=== PATIENT | female | born 1980 | race Caucasian/White ===

== ENCOUNTER 2020-03-29 16:35 | Outpatient (CLI) | payer OTHER, SELFPAY ==
[2020-03-29 17:05] LABS: Basophils Absolute Auto 0.1 K/mm3 (0.0-0.1); Eosinophils Absolute Auto 0.2 K/mm3 (0-0.3); Eosinophils Percent Auto 2.6 % (0-4.4); Hemoglobin 13.4 g/dL (12.0-15.0); Immature Granulocyte Absolute 0.02 K/mm3 (0.00-0.031); Immature Granulocyte Percent A 0.3 % (0-0.5); Lymphocytes Absolute Auto 2.49 K/mm3 (0.9-3.2); Mean Corpuscular HGB Conc 34.4 g/dl (32-36); Mean Corpuscular Hemoglobin 31.2 pg (26-34); Mean Corpuscular Volume 90.9 fl (80-100); Mean Platelet Volume 10.4 fl (7.4-10.4); Monocytes Absolute Auto 0.5 K/mm3 (0.1-0.6); Monocytes Percent Auto 6.6 % (2.6-8.5); Neutrophils Absolute Auto 3.7 K/mm3 (1.3-6.7); Neutrophils Percent Auto 53.5 % (45.5-73.1); Platelet Count Result 225 k/mm3 (150-375); Red Blood Count 4.29 M/mm3 (4.2-5.4); Red Cell Distribution Width 11.8 % (11.5-14.5); White Blood Count 6.9 K/mm3 (4.5-10.0)
[2020-03-29 17:37] LABS: Erythrocyte Sedimentation Rate 6 mm/hr (0-20)
[2020-03-29 17:40] LABS: Alanine Aminotransferase 12 U/L (4-35); Albumin Level 4.4 g/dL (3.5-5.1); Alkaline Phosphatase 63 U/L (38-126); Amylase 116 U/L (30-110); Anion Gap 11.8 mmol/L (7-16); Aspartate Amino Transferase 19 U/L (14-36); Bilirubin,Total 0.4 mg/dL (0.2-1.3); Blood Urea Nitrogen 13 mg/dL (7-17); Calcium 9.1 mg/dL (8.4-10.2); Carbon Dioxide 26 mmol/L (22-30); Chloride 102 mmol/L (98-107); Cholesterol 154 mg/dL (0-200); Estimated Glomerular Filt Rate > 60; Glucose 91 mg/dL (65-105); HDL Direct 59 mg/dL; Lipase 124 U/L (23-300); Potassium 3.8 mmol/L (3.4-5.0); Sodium 136 mmol/L (137-145); Triglycerides 61 mg/dL (<150)
[2020-03-29 17:51] LABS: LDL Cholesterol Direct 79 mg/dL
== END 2020-03-29 16:36 | disposition home or self-care (01) ==
PROVIDERS: PCP Family Medicine; Visit Provider Family Medicine
DX: D64.9 Anemia, unspecified (principal); K59.00 Constipation, unspecified; Z13.220 Encounter for screening for lipoid disorders; R10.13 Epigastric pain; R63.4 Abnormal weight loss
CPT/HCPCS: 36415; 80053; 80061; 82150; 83690; 84443; 85025; 85652

== ENCOUNTER → 2020-11-15 09:15 | Outpatient (CLI) | payer OTHER, SELFPAY ==
--- NOTE | ~2020-11-15 | MMUS_ITS ---
EXAMINATION: MM diagnostic lorrie BI w caleb, US breast LT limited HISTORY: Left axillary lump TECHNIQUE: Additional 3-D tomosynthesis images of the breasts were performed and synthetic 2-D images were generated. CAD analysis was submitted and interpreted. High resolution targeted left axillary u ltrasound was performed. COMPARISON: None BREAST PARENCHYMAL COMPOSITION: The breasts are extremely dense, which lowers the sensitivity of mamm ography. FINDINGS: MAMMOGRAPHIC FINDINGS: There are no suspicious masses, calcifications or architectural distortion in either breast to sugges t malignancy. ULTRASOUND: There are normal-appearing lymph nodes in the left axilla in the area of palpable concern, all of whi ch retain their normal fatty hilum. The largest measures 1.3 cm. No suspicious masses to suggest lynette gnancy. IMPRESSION: 1. No evidence for malignancy in either breast. Left axillary lymph nodes have a benign reactive appe arance. 2. Routine yearly screening mammogram and regular clinical breast examination are recommended. BI-RADS Category 2: Benign finding(s). 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 IMPRESSION: 1. No evidence for malignancy in either breast. Left axillary lymph nodes have a benign reactive appearance. 2. Routine yearly screening mammogram and regular clinical breast examination a re recommended. BI-RADS Category 2: Benign finding(s).
== END ==
PROVIDERS: PCP Family Medicine; Visit Provider Obstetrics & Gynecology
DX: N63.20 Unspecified lump in the left breast, unspecified quadrant (principal)
CPT/HCPCS: 76642; 77062; 77066; G0279

== ENCOUNTER 2021-10-18 10:19 | Outpatient (CLI) | payer OTHER, SELFPAY ==
--- NOTE | ~2021-10-18 | MMUS_ITS ---
EXAMINATION: MM diagnostic lorrie BI w caleb, US breast LT limited HISTORY: Palpable left breast abnormality TECHNIQUE: Additional 3-D tomosynthesis images of the breasts were performed and synthetic 2-D images were generated. CAD analysis was submitted and interpreted. High resolution Limited left breast ultr asound was performed. COMPARISON: 11/15/2020 BREAST PARENCHYMAL COMPOSITION: The breasts are extremely dense, which lowers the sensitivity of mamm ography. FINDINGS: MAMMOGRAPHIC FINDINGS: There is a developing focal asymmetry in the mid outer aspect of the left breast near the areola, cor responding to the palpable finding. The right breast is stable without evidence for malignancy. ULTRASOUND: Limited left breast ultrasound: At 3:00 near the nipple there is a cluster of cysts, largest measurin g 1.9 cm greatest dimension, corresponding to the mammographic and palpable abnormality. No suspiciou s masses to suggest malignancy. IMPRESSION: 1. No evidence for malignancy in either breast. Benign findings. 2. Routine yearly screening mammogram and regular clinical breast examination are recommended. BI-RADS Category 2: Benign finding(s). 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 No evidence for malignancy in either breast. Benign findings. 2. Routine yearly screening mammogram and regular clinical breast examination a re recommended. BI-RADS Category 2: Benign finding(s).
== END 2021-10-18 10:20 | disposition home or self-care (01) ==
LOC: ANHIMG 10:22
PROVIDERS: PCP Family Medicine; Visit Provider Nurse Practitioner Gerontology
DX: N63.0 Unspecified lump in unspecified breast (principal)
CPT/HCPCS: 76642; 77062; 77066; G0279

== ENCOUNTER 2024-11-10 11:05 | Outpatient (CLI) | payer OTHER, SELFPAY ==
--- NOTE | 2024-11-10 11:18 | ECG_ITS ---
Test Date: 2024-11-10 11:43:08 Measurements Intervals [place] Rate: 67 P: 72 MN: 177 QRS: -29 QRSD: 89 T: 28 QT: 400 QTc: 423 Interpretive Statements SINUS RHYTHM BORDERLINE LEFT AXIS DEVIATION [QRS AXIS < -20] No previous ECG available for comparison Electronically Signed On 11-10-2024 13:53:19 CDT by Casper Buck M.D.
--- OUTSIDE RECORDS SUMMARY | 2024-11-10 12:54 | XMS_ITS | Data Portability ---
Author Organization [facility] Address [address] [place] [address] Assessment Encounter Date Assessment Date Assessment LastModified by Organization Details LastModified Time 08/11/2024 08/11/2024 due for mammogram. gyne is Dr. Zbigniew Gu. last pap smear normal. hx of abnormal. hx of HPV no hx of colonoscopy Eye exam: due dental appt: UTD recently. [email or web address] Not available 08/29/2024 19:56:13 Plan of Treatment Reminders Order Date Submit Date Provider Last Modified By Organization Details Last Modified Time Details Appointments None recorded. Lab amylase + lipase, serum 2023 [facility], [address], [place], [address], 5 15:40:40 TSH + free T4, serum 2023 [facility], [address], [place], [address], 5 15:40:40 lipid panel, serum 2023 024 [facility], [address], [place], [address], 5 15:40:40 CMP, serum or plasma 2023 024 [facility], [address], [place], [address], 5 15:40:40 CBC w/ auto diff 2023 [facility], [address], [place], [address], 5 15:40:40 cobalamin and folate panel, serum 2023 [facility], [address], [address], [place], [address], 5 15:40:39 magnesium, serum or plasma 2023 024 [facility], [address], [address], [place], [address], 5 15:40:40 HbA1c (hemoglobi n A1c), blood 2023 024 [facility], [address], [address], [place], [address], 5 15:40:40 test, urine 2020 ankita In-Office Order, Internal Use Only DO Not Attach Compendium DO Not Attach Compendium, Do Not Delete/merge, [id number] 13:07:07 biopsy, endocervic al 2020 [facility] [place] [facility], [address], [place], [address], 1 13:07:07 cytology report, thin prep, smear or scraping, cervical or vaginal 2020 [place] [facility], [address], [address], [place], [address], 1 16:10:54 hepatitis C Ab, signal-to- cutoff, serum or plasma 2020 021 [place] [facility], [address], [place], [address], 1 07:13:10 HBsAg (hepatitis B surface Ag), EIA, serum 2020 [place] [facility], [address], [address], [place], [address], 1 07:13:11 HIV 1+2 AB + HIV 1 p24 Ag, qualitativ e immunoassa y, serum 2020 021 [place] [facility], [address], [place], [address], 1 07:13:09 HSV 2 IgG Ab, QN, IA, serum 2020 021 [place] [facility], [address], [address], [place], [address], 1 07:13:11 RPR (rapid plasma reagin), serum 2020 021 [place] [facility], [address], [address], [place], [address], 07:13:09 Referral None recorded. Procedures colposcopy with biopsy (PROC) 2018 019 [email or web address] Not available 9 17:29:46 Surgeries loop electrode excision procedure, surgical (LEEP) (SURG) 2020 [facility], [address] [place], [address], 11:44:24 Imaging None recorded. Medication Orders None recorded. Patient TargetsNo targets recorded. Patient Instructions Encounter Date Encounter Id Patient Instructions Last Modified By Organization Details Last Modified Time 10/11/2020 [id number] mammogram: about this test jimmy Not available 10/11/2020 12:14:57 01/10/2021 [id number] abnormal Pap test: care instructions jimmy Not available 01/10/2021 13:07:07 colposcopy: before your procedure jimmy Not available 01/10/2021 13:07:07 Reason for Referral None Reported. Results Created Date Observation Date Name Description Value Unit Range Abnormal Flag Note LastModifiedBy Organization Detail LastModifiedTime 01/11/20 21 01/10/2021 pregn anand test, urine HCG negati ve Not Available In-Office Order Internal Use Only DO Not Attach Compendium DO Not Attach Compendium, Do Not Delete/merge, [id number] 01/10/2021 12:35:34 11/05/19 19 11/05/2018 RPR (rapi d plasm a reagi n), serum RPR Non Reacti ve non reacti ve Not Available [facility] ([facility]) [address] [facility], [place], [address], 11/05/2018 11:20:29 11/05/19 19 11/05/2018 HIV 1+2 AB + HIV 1 p24 Ag, quali tativ e immun oassa y, serum HIV screen 4TH generation wrfx Non Reacti ve non reacti ve Not Available [facility] ([facility]) [address] [facility], [place], [address], 11/05/2018 11:20:30 11/05/19 19 11/04/2018 hepat itis C Ab, signa l-to- cutof f, serum or plasm a comment: Commen t Non react teodoro HCV antib gisselle scree n is consi stent with no HCV infec tion, unles s recen t infec tion is suspe cted or other evide nce exist s to indic ate HCV infec tion. Not Available [facility] ([facility]) [address] [facility], [place], [address], 11/05/2018 11:20:30 11/05/19 19 11/05/2018 hepat itis C Ab, signa l-to- cutof f, serum or plasm a HCV Ab <0.1 s/co_ ratio 0.0-0. 9 Not Available [facility] ([facility]) [address] [place], [address], 11/05/2018 11:20:30 11/05/19 19 11/05/2018 HSV 2 IgG Ab, QN, IA, serum hsv 2 IgG, type spec <0.91 index 0.00-0 .90 Negat teodoro <0.91 Equiv ocal 0.91 - 1.09 Posit teodoro >1.09 Note: Negat teodoro indic ates no antib odies detec suki to HSV-2 . Equiv ocal may sugge st early infec tion. If clini tommy appro priat e, retes t at later date. Posit teodoro indic ates antib odies detec suki to HSV-2 . Not Available [facility] ([facility]) [address] [facility], [place], [address], 11/05/2018 11:20:31 11/05/1911/05/2018 HBsAg (hepa titis B surfa ce Ag), EIA, serum HBsAg screen Negati ve negati ve Not Available [facility] ([facility]) [address] [facility], [place], [address], 11/05/2018 11:20:32 11/05/1911/06/2018 pap, LB + CT/NG /TV + HR HPV + refle x HPV (16+1 8) HPV, high-risk Positi ve negati ve abnormal This high- risk HPV test detec ts thirt een high- risk types (16/1 8/31/ 33/35 /39/4 5/51/ 52/56 /58/5 /68) witho ut diffe renti ation . Not Available [facility] ([facility]) [address] [place], [address], 11/09/2018 11:11:52 11/05/1911/06/2018 pap, LB + CT/NG /TV + HR HPV + refle x HPV (16+1 8) chlamydia, nuc. acid amp Negati ve negati ve Not Available [facility] ([facility]) [address] [place], [address], 11/09/2018 11:11:52 11/05/19 19 11/06/2018 pap, LB + CT/NG /TV + HR HPV + refle x HPV (16+1 8) gonococcus, nuc. acid amp Negati ve negati ve Not Available [facility] ([facility]) [address] [place], [address], 11/09/2018 11:11:52 11/05/19 19 11/06/2018 pap, LB + CT/NG /TV + HR HPV + refle x HPV (16+1 8) trich vag by HUMBLE Negati ve negati ve Not Available [facility] ([facility]) [address] [facility], [place], [address], 11/09/2018 11:11:52 11/05/19 19 11/09/2018 pap, LB + CT/NG /TV + HR HPV + refle x HPV (16+1 8) diagnosis: Commen t abnormal EPITH ELIAL CELL ABNOR MALIT Y. LOW-G RADE SQUAM OUS INTRA EPITH ELIAL LESIO N (LSIL ); (ENCO MPASS ING HUMAN PAPIL LOMAV IRUS /MILD DYSPL OSCAR/ CIN1) . Not Available [facility] ([facility]) [address] [facility], [place], [address], 11/09/2018 11:11:52 11/05/19 19 11/09/2018 pap, LB + CT/NG /TV + HR HPV + refle x HPV (16+1 8) recommendati on: Commen t abnormal Sugge st follo w up as clini tommy appro priat e. Not Available [facility] ([facility]) [address] [place], [address], 11/09/2018 11:11:52 11/05/19 19 11/09/2018 pap, LB + CT/NG /TV + HR HPV + refle x HPV (16+1 8) specimen adequacy: Kelly moon Satis facto ry for evalu ation . Endoc ervic al and/o r squam ous metap lasti c cells (endo cervi christen compo nent) are prese nt. Not Available [facility] ([facility]) [address] [facility], [place], [address], 11/09/2018 11:11:52 11/05/19 19 11/09/2018 pap, LB + CT/NG /TV + HR HPV + refle x HPV (16+1 8) clinician provided ICD10: Kelly moon Z01.4 19 Not Available [facility] ([facility]) [address] [facility], [place], [address], 11/09/2018 11:11:52 11/05/19 19 11/09/2018 pap, LB + CT/NG /TV + HR HPV + refle x HPV (16+1 8) performed by: Kelly Ramos, Cytot echno logis t (ASCP ) Not Available [facility] ([facility]) [address] [facility], [place], [address], 11/09/2018 11:11:52 11/05/19 19 11/09/2018 pap, LB + CT/NG /TV + HR HPV + refle x HPV (16+1 8) electronical ly signed by: Kelly Rodrigez MD, Patho logis t Not Available [facility] ([facility]) [address] [facility], [place], [address], 11/09/2018 11:11:52 11/05/19 19 11/09/2018 pap, LB + CT/NG /TV + HR HPV + refle x HPV (16+1 8) . . Not Available [facility] ([facility]) [address] [place], [address], 11/09/2018 11:11:52 11/05/19 19 11/09/2018 pap, LB + CT/NG /TV + HR HPV + refle x HPV (16+1 8) pathologist provided ICD10: Kelly sarai R87.6 12 Not Available [facility] ([facility]) [address] [facility], [place], [address], 11/09/2018 11:11:52 11/05/19 19 11/09/2018 pap, LB + CT/NG /TV + HR HPV + refle x HPV (16+1 8) note: Kelly moon The Pap smear is a scree isaias test desig christiane to aid in the detec tion of dorian ligna nt and malig nant condi tions of the uteri ne cervi x. It is not a diagn ostic proce dure and shoul d not be used as the sole means of detec ting cervi christen cance r. Both false -posi tive and false -nega tive repor ts do occur . Not Available [facility] ([facility]) [address] [facility], [place], [address], 11/09/2018 11:11:52 11/05/19 19 11/04/2018 pregn anand test, urine HCG negati ve Not Available In-Office Order Internal Use Only DO Not Attach Compendium DO Not Attach Compendium, Do Not Delete/merge, [id number] 11/04/2018 09:31:43 10/11/1910/12/2020 RPR (rapi d plasm a reagi n), serum RPR Non Reacti ve non reacti ve Not Available [facility] ([facility]) [address] [facility], [place], [address], 10/12/2020 07:13:09 10/11/19 21 10/12/2020 HIV 1+2 AB + HIV 1 p24 Ag, quali tativ e immun oassa y, serum HIV screen 4TH generation wrfx Non Reacti ve non reacti ve Not Available [facility] ([facility]) [address] [facility], [place], [address], 10/12/2020 07:13:09 10/11/19 21 10/12/2020 hepat itis C Ab, signa l-to- cutof f, serum or plasm a hep C virus Ab <0.1 s/co_ ratio 0.0-0. 9 Negat teodoro: < 0.8 Indet ermin ate: 0.8 - 0.9 Posit teodoro: > 0.[address] [facility] recom mends that a posit teodoro HCV antib gisselle resul t be follo wed up with a HCV Nucle ic Acid Ampli ficat ion test (5509 13). Not Available [facility] ([facility]) [address] [facility], [place], [address], 10/12/2020 07:13:10 10/11/19 21 10/12/2020 HSV 2 IgG Ab, QN, IA, serum hsv 2 IgG, type spec <0.91 index 0.00-0 .90 Negat teodoro <0.91 Equiv ocal 0.91 - 1.09 Posit teodoro >1.09 Note: Negat teodoro indic ates no antib odies detec suki to HSV-2 . Equiv ocal may sugge st early infec tion. If clini tommy appro priat e, retes t at later date. Posit teodoro indic ates antib odies detec suki to HSV-2 . Not Available [facility] ([facility]) [address] [facility], [place], [address], 10/12/2020 07:13:11 10/11/1910/12/2020 HBsAg (hepa titis B surfa ce Ag), EIA, serum HBsAg screen Negati ve negati ve Not Available [facility] ([facility]) [address] [facility], [place], [address], 10/12/2020 07:13:11 10/11/19 21 10/12/2020 cytol ogy repor t, thin prep, smear or scrap ing, cervi christen or vagin al chlamydia, nuc. acid amp Negati ve negati ve Not Available [facility] ([facility]) [address] [facility], [place], [address], 10/17/2020 16:10:54 10/11/19 21 10/12/2020 cytol ogy repor t, thin prep, smear or scrap ing, cervi christen or vagin al gonococcus, nuc. acid amp Negati ve negati ve Not Available [facility] ([facility]) [address] [place], [address], 10/17/2020 16:10:54 10/11/19 21 10/12/2020 cytol ogy repor t, thin prep, smear or scrap ing, cervi christen or vagin al trich vag by HUMBLE Negati ve negati ve Not Available [facility] ([facility]) [address] [facility], [place], [address], 10/17/2020 16:10:54 10/11/19 21 10/13/2020 cytol ogy repor t, thin prep, smear or scrap ing, cervi christen or vagin al HPV aptima Positi ve negati ve abnormal This nucle ic acid ampli ficat ion test detec ts fourt een high- risk HPV types (16,1 8,31, 33,35 ,39,4 5,51, 52,56 ,58,5 9,66, 68) witho ut diffe renti ation . Not Available [facility] ([facility]) [address] [place], [address], 10/17/2020 16:10:54 10/11/1910/17/2020 cytol ogy repor t, thin prep, smear or scrap ing, cervi christen or vagin al diagnosis: Commen t abnormal EPITH ELIAL CELL ABNOR MALIT Y. ATYPI CHRISTEN SQUAM OUS CELLS OF UNDET ERMIN ED SIGNI FICAN CE (ASC- US). Not Available [facility] ([facility]) [address] [place], [address], 10/17/2020 16:10:54 02/10/10/17/2020 cytol ogy repor t, thin prep, smear or scrap ing, cervi christen or vagin al recommendati on: Kelly moon abnormal Sugge st follo w up as clini tommy appro timurat e. Not Available [facility] ([facility]) [address] [place], [address], 10/17/2020 16:10:54 10/11/1910/17/2020 cytol ogy repor t, thin prep, smear or scrap ing, cervi christen or vagin al specimen adequacy: Kelly moon Satis facto ry for evalu ation . Endoc ervic al and/o r squam ous metap lasti c cells (endo cervi christen compo nent) are prese nt. Not Available [facility] ([facility]) [address] [place], [address], 10/17/2020 16:10:54 10/11/19 21 10/17/2020 cytol ogy repor t, thin prep, smear or scrap ing, cervi christen or vagin al clinician provided ICD10: Kelly moon Z01.4 19 Not Available [facility] ([facility]) [address] [place], [address], 10/17/2020 16:10:54 10/11/19 21 10/17/2020 cytol ogy repor t, thin prep, smear or scrap ing, cervi christen or vagin al performed by: Kelly Tam Pushk in, Cytot echno logis t (ASCP ) Not Available [facility] ([facility]) [address] [place], [address], 10/17/2020 16:10:54 10/11/19 21 10/17/2020 cytol ogy repor t, thin prep, smear or scrap ing, cervi christen or vagin al electronical ly signed by: Kelly Rodrigez MD, Patho logis t Not Available [facility] ([facility]) [address] [place], [address], 10/17/2020 16:10:54 10/11/19 21 10/17/2020 cytol ogy repor t, thin prep, smear or scrap ing, cervi christen or vagin al . . Not Available [facility] ([facility]) [address] [place], [address], 10/17/2020 16:10:54 10/11/19 21 10/17/2020 cytol ogy repor t, thin prep, smear or scrap ing, cervi christen or vagin al pathologist provided ICD10: Kelly moon R87.6 10 Not Available [facility] ([facility]) [address] [place], [address], 10/17/2020 16:10:54 10/11/19 21 10/17/2020 cytol ogy repor t, thin prep, smear or scrap ing, cervi christen or vagin al note: Kelly moon The Pap smear is a scree isaias test desig christiane to aid in the detec tion of dorian ligna nt and malig nant condi tions of the uteri ne cervi x. It is not a diagn ostic proce dure and shoul d not be used as the sole means of detec ting cervi christen cance r. Both false -posi tive and false -nega tive repor ts do occur . Not Available [facility] ([facility]) [address] [place], [address], 10/17/2020 16:10:54 10/11/19 21 10/17/2020 cytol ogy repor t, thin prep, smear or scrap ing, cervi christen or vagin al test methodology: Kelly moon This liqui d based ThinP rep(R ) pap test was scree christiane with the use of an image guide ben hanson. Not Available [facility] ([facility]) [address] [place], [address], 10/17/2020 16:10:54 01/11/20 21 01/14/2021 patho logy study . Commen t Mater ial submi tted: . PART A: endoc ervix - ENDOC ERVIC AL CURET TAGE PART B: cervi x - CERVI CHRISTEN BIOPS Y 6:00. Modif iers: 6:00 PART C: cervi x - CERVI CHRISTEN BIOPS Y 9:00. Modif iers: 9:00 Not Available [facility] ([facility]) [address] [facility], [place], [address], 01/14/2021 16:08:15 01/11/20 21 01/14/2021 patho logy study . Commen t Clini christen histo ry: . R87.6 19 Not Available [facility] ([facility]) [address] [facility], [place], [address], 01/14/2021 16:08:15 01/11/20 21 01/14/2021 patho logy study . Commen t Diagn osis: A. ENDOC ERVIC AL CURET TAGE: LOLIS N ENDOC ERVIC AL MUCOS A. B. CERVI CHRISTEN BIOPS Y 4:00: MILD, FOCAL LY MODER ATE SQUAM OUS DISPL OSCAR (SHIV- 1/SHIV -2). ACUTE AND CHRON IC CERVI CITIS . C. CERVI CHRISTEN BIOPS Y 9:00: SMALL FRAGM ENT OF DYSPL ASTIC SQUAM OUS EPITH ELIUM , AT LEAST LOW-G RADE SQUAM OUS DYSPL OSCAR (SHIV- 1). ACUTE AND CHRON IC CERVI CITIS . COMME NT: CLINI CHRISTEN CORRE LATIO N AND PATIE NT FOLLO WUP ARE RECOM SCARLETShawn MARIE 01/14 1330 Local Not Available [facility] ([facility]) [address] [place], [address], 01/14/2021 16:08:15 01/11/20 21 01/14/2021 patho logy study . Commchase t Wilton gray d: . Ever ascencio MD, Patho logis t Not Available [facility] ([facility]) [address] [place], [address], 01/14/2021 16:08:15 01/11/20 21 01/14/2021 patho logy study . Commchase Lowe descr iptio n: . 3 Conta iners , forma rose-f illed , label ed with patie nt ident ifica tion. Part A: ENDOC ERVIC AL CURET TAGE: MINUT E FRAGM ENT(S ) OF MUCUS AND HEMOR RHAGI C MATER IAL MEASU RING 1.3 X 0.2 X 0.1 CM IN AGGRE GATE. FILTE RED AND SUBMI TTED IN CASSE TTE(S ) A1. THE SPECI MEN MAY NOT SURVI VE PROCE SSING . Part B: CERVI CHRISTEN BIOPS Y 6:00: 1 FRAGM ENT(S ) OF ARCEO MUCOI D TISSU E MEASU RING 0.3 X 0.3 X 0.2 CM. FILTE RED AND SUBMI TTED RECEI FRANK IN CASSE TTE(S ) B1. Part C: CERVI CHRISTEN BIOPS Y 9:00: 1 FRAGM ENT(S ) OF ARCEO MUCOI D TISSU E MEASU RING 0.4 X 0.3 X 0.2 CM. SUBMI TTED RECEI FRANK IN CASSE TTE(S ) C1. THE SPECI MEN IS SUBMI TTED BETWE EN TWO SPONG ES FOR PROCE SSING . CYS/C YS 01/11 0937 Local Not Available [facility] ([facility]) [address] [facility], [place], [address], 01/14/2021 16:08:15 01/11/20 21 01/14/2021 patho logy study . Commchase t Patho logis t provi ded ICD-1 0: N87.0 Not Available [facility] ([facility]) [address] [facility], [place], [address], 01/14/2021 16:08:15 01/11/20 21 01/14/2021 patho logy study . Commen t CPT . 76080 1, 50202 2, 91290 3 Not Available [facility] ([facility]) [address] [facility], [place], [address], 01/14/2021 16:08:15 11/16/19 21 11/15/2020 MAMMO , diagn ostic , digit al, bilat eral No observ ation record ed. [facility] [address] [facility] [address], [place], [address], 11/15/2020 16:22:42 Result Notes None recorded. Problems Name Problem SNOMED Code Status Onset Date Resolution Date Notes Provider Name and Address Organization Details Recorded Time Family history of malignant neoplasm of pancreas 501467479 Active 024 REJI Greene Attn: Accountin g,[address] [facility], [place], [address], [facility] 4 19:56:40 Long-term drug therapy Active 024 REJI Greene Attn: Accountin g,[address] [facility], [place], [address], [place] [facility] 4 19:56:46 Body mass index 20-24 - normal 467925447 Active 024 REJI Greene Attn: Accountin g,[address] [facility], [place], [address], [facility] - [facility] 4 19:57:04 Problem Notes None recorded. Procedures Surgical History Date Name Laterality Status Provider Name and Address Organization Details Recorded Time 01/10/2021 Colposcopy completed Nate Chopra MD Attn: Accounting,[address] [facility], [place], [address], [facility] 01/10/2021 13:10:08 05/26/2017 Colposcopy completed Nate Chopra MD Attn: Accounting,[address] [facility], [place], [address], [facility] 05/26/2017 11:11:05 Imaging Results Imaging Date Name Status LastModified by Organiz ation Details LastModified Time 11/15/2020 MAMMO, diagnostic, digital, bilateral completed [facility] [address], [place], [address], 11/15/2020 16:22:42 Procedure Notes None recorded. Medical Equipment None Reported. Allergies No known drug allergies Medications Name Sig Start Date Stop Date Status Note LastModified by Organization Details LastModified Time smz/tmp ds tab 800-160 08/11 completed Not Available Not Available Not Available poly-iron cap 150 fort 08/11 completed Not Available Not Available Not Available valacyclovi r 1 gram tablet TAKE 1 TABLET BY MOUTH EVERY 12 HOURS active Not Available Not Available No t Available sulfamethox azole 800 mg-trimetho prim 160 mg tablet 01/10 completed Not Available Not Available Not Available 09/20 (28) 1 mg-20 mcg (21)/75 mg (7) tablet TAKE 1 TABLET BY MOUTH EVERY DAY 03/09 completed Not Available Not Available Not Available nitrofurant oin monohydrate /macrocryst als 100 mg capsule TAKE 1 CAPSULE BY MOUTH EVERY 12 HOURS FOR UTI FOR 7 DAYS MUST ADMINISTE R WITH A MEAL/FOOD 08/11 completed Not Available Not Available Not Available multivitami n active otc Not Available Not Available Not Available Vitals Date Recorded Body height Body mass index (BMI) Body weight Systolic blood pressure Diastolic blood pressure Provider Name and Address Organization Details Last Updated DateTime 11/18/2018 154.94 cm 22.9 kg/m2 58398.68 g 138 mm[Hg] 82 mm[Hg] Shellie Lund MA [facility] 9 16:33:12 Date Recorded Body height Body mass index (BMI) Body weight Systolic blood pressure Diastolic blood pressure Provider Name and Address Organization Details Last Updated DateTime 10/11/2020 154.94 cm 20.2 kg/m2 84339.38 g 114 mm[Hg] 68 mm[Hg] Glory YOHANA Garcia [facility] 11:18:32 Date Recorded Body height Body mass index (BMI) Body weight Systolic blood pressure Diastolic blood pressure Provider Name and Address Organization Details Last Updated DateTime 01/10/2021 154.94 cm 20.3 kg/m2 11331.82 g 116 mm[Hg] 70 mm[Hg] Lexy Calderon MA [facility] 11:26:56 Date Recorded Body height Provider Name an d Address Organization Details Last Updated DateTime 03/09/2021 154.94 cm Deisi Crookschelsea Acosta [facility] 2020 13:57:07 Date Recorded Body height Body mass index (BMI) Body weight Respiratory rate Oxygen saturation Oxygen saturation in Arterial blood by Pulse oximetry Heart rate Systolic blood pressure Diastolic blood pressure Provider Name and Address Organization Details Last Updated DateTime 4 154.94 cm 22.9 kg/m2 22050.6 8 g 18 /min 100 % 100 % 87 /min 126 mm[Hg] 82 mm[Hg] Eren Causey MA [facility] 4 15:06:39 Date Recorded Systolic blood pressure Diastolic blood pressure Systolic blood pressure Diastolic blood pressure Provider Name and Address Organization Details Last Updated DateTime 08/11/2024 98 mm[Hg] 70 mm[Hg] 90 mm[Hg] 70 mm[Hg] REJI Greene Attn: Accounting ,[address] [place], [address] , [facility] 4 15:50:16 Social History Question Answer Notes LastModified by Organizat ion Details LastModified Time Tobacco Smoking Status Never Smoker Shellie Lund MA null, [facility] 05/26/2017 10:18:10 Do You Have An Advance Directive? No Doesn't Have This Information not available 08/11/2024 What Is Your Level Of Alcohol Consumption? Occasional Rare Information not available 08/11/2024 Are You Blind Or Do You Have Difficulty Seeing? No Should Wear Glasses/ Readers Only Information not available 08/11/2024 What Is Your Level Of Caffeine Consumption? Moderate Soda Information not available 08/11/2024 In The 14 Days Before Symptom Onset, Have You Had Close Contact With A Laboratory-confir med COVID-19 While That Case Was Ill? No Information not available 08/11/2024 In The 14 Days Before Symptom Onset, Have You Had Close Contact With A Person Who Is Under Investigation For COVID-19 While That Person Was Ill? No Information not available 08/11/2024 Have You Been To An Area Known To Be High Risk For COVID-19? No Information not available 08/11/2024 Are You Currently Employed? Yes Information not available 08/11/2024 Are You Deaf Or Do You Have Serious Difficulty Hearing? No Information not available 08/11/2024 What Type Of Diet Are You Following? 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 No Information not available 08/11/2024 What Was The Date Of Your Most Recent Tobacco Screening? 08/11/2024 Information not available 08/11/2024 Do You Use Your Seat Belt Or Car Seat Routinely? Yes Information not available 08/11/2024 Do You Have Smoke And Carbon Monoxide Detectors In Your Home? Yes Information not available 08/11/2024 Do You Use Any Illicit Or Recreational Drugs? No Information not available 08/11/2024 Do You Use Sunscreen Routinely? No Information not available 08/11/2024 Has Tobacco Cessation Counseling Been Provided? No [email or web address] Information not available 03/09/2021 Do You Or Have You Ever Used Any Other Forms Of Tobacco Or Nicotine? No Information not available 03/09/2021 Sex: Female Functional Status Question Answer Note LastModified by Organizat ion Details LastModified Time Are you able to care for yourself? Yes Information not available 08/11/2024 What is your exercise level? Occasional 6x a week Information not available 08/11/2024 Mental Status None recorded. Family History Relationship Description Onset Age of this Age Resolved Age Notes LastModified by Organization Details LastModified Time Paternal Aunt Malignant tumor of breast [email or web address] Not available 2020 11:45:10 Daughter Asthma mslackma Not available 10/11/2020 11:45:22 Daughter Depressive disorder mslackma Not available 2020 11:45:37 Maternal Grandmother Diabetes mellitus mslackma Not available 2020 11:45:47 Mother Diabetes mellitus mslackma Not available 2020 11:45:53 Maternal Grandfather Heart disease mslackma Not available 2020 11:46:12 Maternal Aunt Kidney disease mslackma Not available 2020 11:46:25 Maternal Aunt Malignant tumor of cervix mslackma Not available 2020 11:46:42 Medical History Condition Response Other N High Blood Pressure N Breast Cancer N Thyroid Problems N Kidney or Bladder Problems N GI Problems N Depression N Blood Clots N Lung Disease N Acne N Breast Problem N Eating Disorder N Anemia Y Anesthesia Complications N Headaches/Migraines Y Anxiety Disorder N Diabetes N Ovarian Cancer N Muscle, Joint, or Bone Problems N Blood Transfusions N Seizures/Epilepsy N Polyps N Infertility N Acid Reflux (GERD) N Cancer N Abuse/Domestic Violence N Asthma Y Allergies Y Endometriosis N High Cholesterol N Hepatitis N Liver Disease N Heart Disease N Pre-Eclampsia N Osteoporosis N Gynecological History Statement/Question Response Abnormal Pap Y Flow Moderate Date of LMP 07/31/2024 STIs/STDs N Duration of Flow (days) 7 Age at Menarche 12 Current Control Method None Age at First Child 18 Sexually Active? Y Menses Monthly Y Date of Last Pap Smear Sexual Problems? N LMP Definite Desired Control Method None Obstetrics History GPAL:G 3 P 2 0 1 2 Type Value Full Term 2 Induced 0 Spontaneous 1 Premature 0 Living 2 Total 3 Past Encounters Encounter ID Performer Location Encounter Start Date Encounter Closed Date Diagnosis/Indication Diagnosis SNOMED-CT Code Diagnosis ICD10 Code Diagnosis Note [id number] MD Emmanuel Hamlin (WAY[facility] 122) [address] [facility] [place] [address] 05/02/2017 10:55:56 05/02/2017 14:59:49 [id number] MD Emmanuel Hamlin ([facility] [address]) [address] [facility] [place] [address] 05/26/2017 09:52:17 05/26/2017 11:21:03 HPV - Human papillomavirus test positive 747317683 R87.000 [id number] MD Emmanuel Hamlin ([facility] [address]) [address] [facility] [place] [address] 06/06/2017 12:05:52 06/06/2017 14:31:13 HPV - Human papillomavirus test positive 253695833 R87.619 Coposcopy benign, follow up in 12 months for co-testing . [id number] MD Emmanuel Hamlin 14 OB [address] [facility] [place] [address] 11/04/2018 09:14:14 11/04/2018 12:29:59 Contraception care 384871627 Z30.40 Gynecologi c examination 19714369 Z01.419 CBE and pap smear performed Venereal d isease screening 204903364 Z11.3 [id number] MD Emmanuel Hamlin 14 OB [address] [facility] [place] [address] 11/18/2018 16:26:02 11/19/2018 09:16:04 Low grade squamous intraepithelial lesion on cervical Papanicolaou smear [id number] 9105 R87.612 Review records from prior physician for abnormal pap smears [id number] MD Emmanuel Hamlin 14 OB 4 [facility] [place] [address] 10/11/2020 11:00:23 10/13/2020 14:18:24 Gynecologic examination 76828186 Z01.419 CBE and pap smear performed Venereal d isease screening 492649238 Z11.3 Screening mammography 24 890690 Z12.31 [id number] MD Emmanuel Hamlin 14 OB 4 [facility] [place] [address] 01/10/2021 10:57:36 01/11/2021 13:11:04 Abnormal cervical Papanicolaou smear 291327958 R87.956 [id number] Nate Chopra MD [facility] 14 OB 4 [facility] [address] [place] [address] 03/09/2021 13:55:49 03/12/2021 05:34:45 Cervical intraepithelial neoplasia grade 2 138741264 N87.0 [id number] REJI Greene [facility] [address] [place] [address] 08/11/2024 14:52:42 08/11/2024 16:16:20 Adult health examination 928944100 Z00.00 New patient annual wellness exam completed Cholesterol screening 27 2304929 Z13.220 Fasting lipid panel ordered for baseline review Diabetes m ellitus screening 742789993 Z13.1 A1c screening ordered for baseline assessment Thyroid di sorder screening 252500781 Z13.29 Routine thyroid function testing ordered Family his tory of malignant neoplasm of pancreas 627644711 Z80.0 Patient reports a history in the family of pancreatic cancer baseline amylase and lipase were ordered at patient request Long-term drug therapy 891890583 Z79.891 Routine CBC, CMP, B12 folate magnesium ordered Body mass index 20-24 - normal 679035342 Z68.22 BMI is 22.9 Health Concerns Section Related Observation LastModified by Organization Detai ls LastModified Time None Recorded Concern Status LastModified by Organization Details LastModified Time None Recorded Advance Directives Directive N: doesn't have this Payers Encounter Date Sequence Insurance Name Policy Number Policy Quinones Covered Member ID Quinones Member ID Guarantor Name 11/18/2018 2 [place] [facility] Latasha Nayak [id number] Latasha Nayak 11/18/2018 1 [facility] [id number] Latasha Nayak [id number] Latasha Nayak 10/11/2020 1 [employer] - [facility] - CHOICE PLUS (EPO) [id number] Latasha Nayak [id number] Latasha Nayak 01/10/2021 1 [employer] [facility] - CHOICE PLUS (EPO) [id number] Latasha Nayak [id number] Latasha Nayak 03/09/2021 1 [employer] - [facility] - CHOICE PLUS (EPO) [id number] Latasha Nayak [id number] Latasha Mengshawn 08/11/2024 1 [facility] [id number] Latasha Nayak [id number] Latasha Nayak Notes Date Note Type Note Provider Name and Address Organization Details Recorded Time 11/18/2018 text/html Patient presents to discuss test results. Nate Chopra MD Attn: [address] [place], [address], [facility] 11/18/2018 17:03:57 10/11/2020 text/html Annual GYNReport ed bypatient.History: no gynecologic complaints Menstrual cycle:Normal menses Urinary symptoms:No hematuria; No incontinence Vulva:No genital lesion Vagina:Normal vaginal discharge Breast:No breast pain; No nipple discharge;Breast lump(left axila) Current Contraception:Lulú h control not practiced; Requests testing for sexually transmitted infections Sexual complaints:No sexual complaints; No pain during intercourse; Normal libido Menopausal Symptoms:No menopausal symptoms; Normal vaginal lubrication Psychological symptoms:No depression; No anxiety; No PMDD Nate Chopra MD Attn: [address] [place], [address], [facility] 10/11/2020 12:44:14 01/10/2021 text/html Patient presents for coloposocy secondary to abnormal pap smear. Nate Chopra MD Attn: [address] [place], [address], [facility] 01/10/2021 13:11:06 03/09/2021 text/html Patient presents to discuss colposcopy results. She denie any other complaints. Nate Chopra MD Attn: [address] [place], [address], [facility] 03/09/2021 15:54:13 08/11/2024 text/html Patient presents as a new patient to establish care. She is interested in having her annual wellness exam as well as routine labs. She does report a family history REJI Greene Attn: [address] [facility], [place], [address], [facility] 08/29/2024 19:57:43 OBGyn Episode No OBEpisode recorded.
--- OUTSIDE RECORDS SUMMARY | 2024-11-10 12:54 | XMS_ITS | Clinical Summary ---
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 Name Role Phone Asiya Coyle MD Primary Care Provider Allergies No known active allergies Medications multivitamin capsule Take 1 capsule by mouth daily Active Active Problems No known active problems Encounters Date Type Department Care Team Description 08/18/2024 4:00 PM UPPER DOUBLER Office Visit [facility] Obstetrics and Gynecology [address] [facility], [place] [id number] Zbigniew Gu MD Well woman exam (Primary Dx) 08/18/2024 10:07 AM UPPER DOUBLER - 08/18/2024 11:59 PM UPPER DOUBLER Hospital Encounter [facility] Office Building [address] [place] [address] Well woman exam Discharge Disposition: Discharge to home or self care from Last 3 Months Social History Tobacco Use Types Packs/Day Years Used Date Smoking Tobacco: Former Cigarettes Smokeless Tobacco: Never Tobacco Cessation:Counseling Given: Not Answered AUDIT-C Answer Date Recorded Q1: How often do you have a drink containing alc ohol? Monthly or less 08/18/2024 Average Number of Drinks Not on file 024 Q3: How often do you have si x or more drinks on one occasion? Never 08/18/2024 Comments No Sex and Gender Information Value Date Recorded Sex Assigned at Not on file Legal Sex Female 11:13 AM UPPER DOUBLER Gender Identity Female 09/03/2023 8:34 PM UPPER DOUBLER Sexual Orientation Straight 09/03/2023 8: 34 PM UPPER DOUBLER Obstetrics History Para Term AB IAB SAB Ectopic Multiple Livin g Live Births 2 2 2 Date Outcome GA Total Labor Labor/2nd/3rd Weight Sex Type Anes PTL Ansley A1 A5 Name Clin Term Term Last Filed Vital Signs Vital Sign Reading Time Taken Comments Blood Pressure 135/80 08/18/2024 4:18 PM UPPER DOUBLER Pulse - - Temperature - - Respiratory Rate - - Oxygen Saturation - - Inhaled Oxygen Concentration - - Weight 55.4 kg (122 lb 2.2 oz) 08/18/2024 4:18 P M UPPER DOUBLER Height 154.9 cm (5' 1 ) 08/18/2024 4:18 PM UPPER DOUBLER Body Mass Index 23.08 08/18/2024 4:18 PM UPPER DOUBLER Plan of Treatment Health Maintenance Due Date Last Done Comments Depression Screening 1980 Hepatitis C Screening 1980 Varicella Vaccines (1 of 2 - 13+ 2-dose series) 1994 DTaP/Tdap/Td Vaccine (4 - Tdap) 03/16/1996 03/15/1996, 03/19/1982, 1980, Additional history exists Covid-19 Vaccine ( season) 2024 05/10/2021, 04/12/2021 Influenza Vaccine (#1) 2024 06/16/2023 Breast Cancer Screening-Mammogram 11/18/2024 11/19/2023 Regular Well Visit/Exam 18-64 08/18/2025 08/18/2024, 07/30/2023 Cervical Cancer Screening 08/19/20252023, 08/18/2024, 07/30/2023, Additional history exists Hepatitis B Screening Completed 07/16/2005 HPV Vaccines Aged Out No longer eligi ble based on patient's age to complete this topic Pneumococcal vaccine <65 Aged Out No longer eligible based on patient's age to complete this topic Procedures Procedure Name Priority Date/Time Associated Diagnosis Comments HIGH RISK HPV DNA DETECTION WITH GENOTYPING Routine 08/19/2024 4:45 PM UPPER DOUBLER Well woman exam PAP AND HIGH RISK HPV, REFLEX TO GENOTYPING Routine 08/18/2024 4:50 PM UPPER DOUBLER Well woman exam SCREENING MAMMOGRAM BILATERAL W GUILLERMO Schedule Routine, Read Routine (OP Routine) 11/19/2023 4:45 PM CDT Encounter for preventative adult health care examination from Last 3 Months or Most Recently Relevant to Health Maintenance Results * High Risk HPV DNA Detection with Genotyping (Molecular component) (08/19/2024 4:45 PM UPPER DOUBLER) HPV HR 16 Not Detected Not Detected [facility] Comment:Testing performed by : [facility], [address] [place]., [address] HPV HR 18 Not Detected Not Detected [facility] Comment:Testing performed by : [facility], [address] [place]., [address] HPV HR Non 16/18 Not Detected Not Detected [facility] Comment: Interpretive Data Nucleic acid amplification for detection of high-risk Human Papilloma virus (HPV) is performed by the Issa Jaguar 6800 HPV test. This assay specifically detects HPV-16 and HPV-18 genotypes. The following HPV genotypes are detected as high-risk HPV: HPV-31, 33, 35, ,39, 45, 51, 52, 56, 58, 59, 66, and 68. This assay has been approved by the [place] Food and Drug Administration for detection of HPV in cervical specimens collected by a physician using an endocervical brush/spatula or cervical broom and placed in the ThinPrep Pap Test PreservCyt collection containers. The performance characteristics of this test have been verified by the [facility] Molecular Infectious Disease laboratory. Correlate with separately reported cytology results, as applicable. Interpretive data last revised 23 Testing performed by: [facility], [address] [place]., [address] Endocervical 08/19/2024 4:45 PM UPPER DOUBLER 08/23/2024 9:20 AM UPPER DOUBLER Narrative [facility] - 08/23/2024 6:53 PM UPPER DOUBLER Clinical history and diagnosis->43yo G0 Number of vials->1 Testing type->Screening Last menstrual period (date if known)->07/31/24 Menstrual status->Regular us Zbigniew Gu MD LAB BODY FLUIDS AND STOOLS ORDERABLES Final Result [facility] [address] [facility] Department [place] [address] [facility] * Pap and High Risk HPV and Genotyping (Cytology Component) (08/18/2024 4:50 PM UPPER DOUBLER) Thin prep (Pap test) 08/18/2024 4:50 PM UPPER DOUBLER 08/20/2024 8:29 AM UPPER DOUBLER Narrative PATHOLOGY [facility] - 08/27/2024 2:22 PM UPPER DOUBLER EPIC results best viewed via link to PDF [facility] Krista Johnson [facility] [place] [address] Note to Patients: This report may contain a detailed description of human tissue sent by a health care provider to the laboratory for pathologic evaluation. The content of this report is essential for diagnosis and may provide important critical findings. This information may be unfamiliar to patients to review without a medical professional present. It is advised that the patient review this report in the presence of a health care provider who can answer questions and explain the details. CYTOPATHOLOGY REPORT FINAL Patient Name: MOSES PAT Gender: F : 1980 (Age: 43) Address: [address] [place], [place] [id number] [facility] #: [id number] Service: DEFAULT Location: Patient Type: [facility] SPECIMEN Taken: 08/18/2024 Received: 08/20/2024 Accessioned: 08/20/2024 Reported: 08/27/2024 Physician(s): Zbigniew Gu M.D. FINAL INTERPRETATION SOURCE OF SPECIMEN Liquid based Thin Prep pap with HPV: STATEMENT OF ADEQUACY - Satisfactory for evaluation - Endocervical cells/transformation zone sample present GENERAL CATEGORIZATION: - Negative for squamous intraepithelial lesion or malignancy INTERPRETATION: - Fungal organisms morphologically consistent with carlos species Comments (Normal-Negative for High Risk HPV) HPV HR 16- Not detected HPV HR 18-Not detected HPV HR non 16/18- Not detected Interpretive Data Nucleic acid amplification for detection of high-risk Human Papilloma virus (HPV) is performed by the Issa Jaguar 6800 HPV test. This assay specifically detects HPV- 16 and HPV-18 genotypes. The following HPV genotypes are detected as high-risk HPV: HPV-31, 33, 35, 39, 45, 51, 52, 56, 58, 59, 66, and 68. This assay has been approved by the [place] Food and Drug Administration for detection of HPV in cervical specimens collected by a physician using an endocervical brush/spatula or cervical broom and placed in the ThinPrep Pap Test PreservCyt collection containers. The performance characteristics of this test have been verified by the [facility] Molecular Infectious Disease laboratory. Correlate with reported cytology results, as applicable. Interpretive data last revised 23 This specimen has been rescreened in accordance with this laboratory's Park Manager Program. [facility]/08/27/2024 14:22 GERI Navas(ASCP) Report Electronically Reviewed and Signed Out By CAROLA Castelan (ASCP) 08/27/2024 14:22:17 Cervicovaginal Cytology (Pap Test) Disclaimer: The Pap test is a screening test used to detect cervical cancer and its precursors; it is not a diagnostic procedure. False negative and false positive results do occur. Pap test results should be interpreted in the context of pertinent clinical information and biopsy results as indicated. [facility] Clinical Laboratory Improvement Amendments (CLIA) mandate that cytologic and histologic results be correlated for laboratory assistant quality manager & improvement standards. FOR ALL HIGH-GRADE CASES we request submission of follow-up histological material and/or reports that have not been previously provided so that we may fulfill said required standards. Gross Description A. Liquid based Thin Prep pap with HPV: Cervical/vaginal - Screening ThinPrep Clinical Diagnosis and History Last Menstrual Period: 07-31-24 Menstrual History: Regular Cycles The patient is a 43 year old female with G0. Report Images and scanned documents, if included only viewable in PDF version The performance characteristics of some immunohistochemical stains, in-situ hybridization and fluorescence in-situ hybridization tests and immunophenotyping by flow cytometry cited in this report (if any) were determined by the Surgical Pathology Department at [facility] as part of an ongoing chemistry quality control technician program and in compliance with federally mandated regulations drawn from the Clinical Laboratory Improvement Act of 1988 (CLIA '88). Some of these tests rely on the use of analyte specific reagents and are subject to specific labeling requirements by the [place] Food and Drug Administration. Such diagnostic tests may only be performed in a facility that is certified by the Department of Health and Human Services as a high complexity laboratory under CLIA '88. The FDA has determined that such clearance or approval is not necessary. This test is used for clinical purposes. It should not be regarded as investigational or for research. Nevertheless, federal rules concerning the medical use of analyte specific reagents require that the following disclaimer be attached to the report: This test was developed and its performance characteristics determined by the Surgical Pathology Department of [facility]. It has not been cleared or approved by the [place]. S. Food and Drug Administration. Zbigniew Gu MD LAB CYTOLOGY ORDERABLES Fi nal Result PATHOLOGY [facility] * Screening Mammogram Bilateral W Guillermo (11/19/2023 4:45 PM CDT) Anatomical Region Laterality Modality Breast Bilateral Mammography Impressions 11/24/2023 11:22 AM CDT BI-RADS ATLAS category (overall): 2 - Benign There is no mammographic evidence of malignancy. A 1 year screening mammogram is recommended. The patient has been or will be contacted. We recommend annual screening mammography for women at average risk of breast cancer beginning at age 40, based on guidelines of the [employer] (ACR Practice Parameter for the Performance of Screening and Diagnostic Mammography) and [employer]. For women with and elevated risk of breast cancer, please refer to the ACR Practice Parameter for specific screening recommendations. The patient will be entered into a reminder system with a target due date of 1 year for her next screening exam. Narrative 11/24/2023 11:22 AM CDT Screening Mammogram Bilateral W Guillermo: 11/19/23 The study was acquired using full field digital technology and interpreted from soft copy. 2D digital mammographic views, as well as 3D digital tomosynthesis were performed in the CC and MLO projections. CLINICAL: Encounter for preventative adult health care examination. No relevant medical history has been documented for this patient. No known family history of breast cancer. COMPARISONS: 10/18/2021 Breast Imaging US Outside Reference 10/18/2021 Breast Imaging Diagnostic Outside Reference 11/15/2020 Breast Imaging Diagnostic Outside Reference BREAST TISSUE: The breasts are extremely dense, which lowers the sensitivity of mammography. FINDINGS: Benign mass in the subareolar left breast, in keeping with known cyst. There is no new suspicious finding in either breast on mammogram. Zbigniew Gu MD IMG MAMMO PROCEDURES Final Result from Last 3 Months or Most Recently Relevant to Health Maintenance Insurance [facility] CHOICE PLUS [facility] CHOICE PLUS Member Subscriber Plan / Payer (Ef fective 2022-Present) Name:Moses Pat Relation to Subscriber:Self Name:Moses Pat Payer ID:[id number] (NAIC) Type:[facility] HMO/PPO Address: [place] [id number] [place] [id number] Care Teams Radar Engineering Teacher Relationship Specialty Start Date End Date Asiya Coyle MD [address] [facility] [address] [place] [address] PCP - General Family Medicine 07/30/23
--- OUTSIDE RECORDS SUMMARY | 2024-11-10 12:54 | XMS_ITS | Referral Summary ---
Author Organization [facility] Address [address] [place] [address] Care Team Providers Care Telephone Messenger Name Role Phone Asiya Coyle MD Primary Care Provider Encounters Date Type Department Care Team Description 08/18/2024 10:07 AM MANUFACTURED BUILDINGS REPAIRER - 08/18/2024 11:59 PM MANUFACTURED BUILDINGS REPAIRER Hospital Encounter [facility] [address] [place] [address] [phone] Well woman exam Discharge Disposition: Discharge to home or self care 08/18/2024 4:00 PM MANUFACTURED BUILDINGS REPAIRER Office Visit [facility] [address] [place] [address] [address] [address] Zbigniew Gu MD Well woman exam (Primary Dx) from Last 3 Months Allergies No known active allergies Medications multivitamin capsule Take 1 capsule by mouth daily Active Active Problems No known active problems Social History Tobacco Use Types Packs/Day Years [...] on file Legal Sex Female 11:13 AM MANUFACTURED BUILDINGS REPAIRER Gender Identity Female 09/03/2023 8:34 PM MANUFACTURED BUILDINGS REPAIRER Sexual Orientation Straight 09/03/2023 8: 34 PM MANUFACTURED BUILDINGS REPAIRER Last Filed Vital Signs Vital Sign Reading Time Taken Comments Blood Pressure 135/80 08/18/2024 4:18 PM MANUFACTURED BUILDINGS REPAIRER Pulse - - Temperature - - Respiratory Rate - - Oxygen Saturation - - Inhaled Oxygen Concentration - - Weight 55.4 kg (122 lb 2.2 oz) 08/18/2024 4:18 P M MANUFACTURED BUILDINGS REPAIRER Height 154.9 cm (5' 1 ) 08/18/2024 4:18 PM MANUFACTURED BUILDINGS REPAIRER Body Mass Index 23.08 08/18/2024 4:18 PM MANUFACTURED BUILDINGS REPAIRER Plan of Treatment Not on file Procedures Procedure Name Priority Date/Time Associated Diagnosis Comments HIGH RISK HPV DNA DETECTION WITH GENOTYPING Routine 08/19/2024 4:45 PM MANUFACTURED BUILDINGS REPAIRER Well woman exam PAP AND HIGH RISK HPV, REFLEX TO GENOTYPING Routine 08/18/2024 4:50 PM MANUFACTURED BUILDINGS REPAIRER Well woman exam SCREENING MAMMOGRAM BILATERAL W GUILLERMO Schedule Routine, Read Routine (OP Routine) 11/19/2023 4:45 PM CDT Encounter for preventative adult health care examination from Last 3 Months or Most Recently Relevant to Health Maintenance Results * High Risk HPV DNA Detection with Genotyping (Molecular component) (08/19/2024 4:45 PM MANUFACTURED BUILDINGS REPAIRER) HPV HR 16 Not Detected Not Detected [facility] Comment:Testing performed by : [facility], [address] [place] [address] HPV HR 18 Not Detected Not Detected [facility] Comment:Testing performed by : [facility], [address] [place]., [address] HPV HR Non 16/18 Not Detected Not Detected [facility] Comment: Interpretive Data Nucleic acid amplification for [...] this test have been verified by the [facility] Molecular Infectious Disease laboratory. Correlate with separately reported cytology results, as applicable. Interpretive data last revised 23 Testing performed by: [facility], [address] [place]., [address] Endocervical 08/19/2024 4:45 PM MANUFACTURED BUILDINGS REPAIRER 08/23/2024 9:20 AM MANUFACTURED BUILDINGS REPAIRER Narrative [facility] - 08/23/2024 6:53 PM MANUFACTURED BUILDINGS REPAIRER Clinical history and diagnosis->43yo G0 Number of vials->1 Testing type->Screening Last menstrual period (date if known)->07/31/24 Menstrual status->Regular us Zbigniew Gu MD LAB BODY FLUIDS AND STOOLS ORDERABLES Final Result [facility] [address] [facility] Department [place] [address] [facility] * Pap and High Risk HPV and Genotyping (Cytology Component) (08/18/2024 4:50 PM MANUFACTURED BUILDINGS REPAIRER) Thin prep (Pap test) 08/18/2024 4:50 PM MANUFACTURED BUILDINGS REPAIRER 08/20/2024 8:29 AM MANUFACTURED BUILDINGS REPAIRER Narrative [facility] - 08/27/2024 2:22 PM MANUFACTURED BUILDINGS REPAIRER EPIC results best viewed via link to PDF [facility] [place] [address] Note to Patients: This report may contain [...] REPORT FINAL Patient Name: MOSES PAT Gender: Chen[place] : 1980 (Age: 43) Address: [address] [place] [id number] [facility] #: [id number] Service: DEFAULT Location: Patient Type: E SPECIMEN Taken: 08/18/2024 Received: 08/20/2024 Accessioned: 08/20/2024 [...] this test have been verified by the [facility] Molecular Infectious Disease laboratory. Correlate with reported cytology results, as applicable. Interpretive data last revised 23 This specimen has been rescreened in accordance with this laboratory's Guest Services Coordinator Program. tc/08/27/2024 14:22 GERI Navas(ASCP) Report Electronically Reviewed and [...] clinical information and biopsy results as indicated. [facility] Clinical Laboratory Improvement Amendments (CLIA) mandate that cytologic and histologic results be correlated for laboratory air quality chemist & improvement standards. FOR ALL HIGH-GRADE CASES [...] determined by the Surgical Pathology Department at [facility] as part of an ongoing quality control inspector heading program and in compliance with federally mandated [...] determined by the Surgical Pathology Department of [facility]. It has not been cleared or approved by the [place]. S. Food and Drug Administration. Zbigniew Gu MD LAB CYTOLOGY ORDERABLES Fi nal Result PATHOLOGY [facility] * Screening Mammogram Bilateral W Guillermo (11/19/2023 [...] age 41, based on guidelines of the [employer] (ACR Practice Parameter for the Performance of Screening and Diagnostic Mammography) and [employer]. For women [...] Most Recently Relevant to Health Maintenance Insurance [facility] CHOICE PLUS [facility] CHOICE PLUS Member Subscriber Plan / Payer (Ef fective 2022-Present) Name:Moses Pat Relation to Subscriber:Self Name:Moses Pat Payer ID:[id number] (NAIC) Type:[facility] HMO/PPO Address: [place] [phone] Care Teams Telephone Messenger Relationship Specialty Start Date End Date Asiya Coyle MD [address] [facility] [address] [place] [address] PCP - General Family Medicine 07/30/23
== END 2024-11-10 11:06 | disposition home or self-care (01) ==
LOC: ANHCARD 11:09
PROVIDERS: PCP Physician Assistant; Visit Provider Orthopaedic Surgery
DX: R07.9 Chest pain, unspecified (principal)
CPT/HCPCS: 93005